=== PATIENT | male | born 1955 | race Caucasian/White ===

== ENCOUNTER → 2020-06-24 | Outpatient (CLI) | payer MEDICARE, OTHER ==
[~2020-06-24] MED LIST: BACITRAYCIN PLU28 GM TP; CYCLOBENZAPRINE10 MG PO; FLONASE 0.05% N16 GM; IBUPROFEN600 MG PO; OMNICEF 300 MG300 MG PO; TESSALON PERLE100 MG PO
== END ==
LOC: RAD 10:05
DX: R93.7 Abnormal findings on diagnostic imaging of other parts of musculoskeletal system (principal)
CPT/HCPCS: 72110

== ENCOUNTER → 2020-07-19 | Outpatient (CLI) | payer MEDICARE, OTHER | LOC: EMI 10:31 | DX: M54.5 Low back pain (principal); M51.35 Other intervertebral disc degeneration, thoracolumbar region | CPT/HCPCS: 72148 ==

== ENCOUNTER 2020-12-11 22:20 | Emergency (ER) | payer OTHER, MEDICARE ==
[~2020-12-11 22:20] MED LIST changes: -BACITRAYCIN PLU28 GM TP; -CYCLOBENZAPRINE10 MG PO; -IBUPROFEN600 MG PO
[2020-12-12] MEDS ORDERED: CYCLOBENZAPRINE10 MG PO (00:04)
[2020-12-12] MEDS ORDERED: IBUPROFEN600 MG PO (00:04)
[2020-12-12] MEDS ORDERED: BACITRAYCIN PLU28 GM TP (00:06)
== END 2020-12-12 00:26 | disposition home or self-care (01) ==
LOC: ER1 22:20
DX: S20.212A Contusion of left front wall of thorax, initial encounter (principal); S80.212A Abrasion, left knee, initial encounter; S50.812A Abrasion of left forearm, initial encounter; V19.9XXA Pedal cyclist (driver) (passenger) injured in unspecified traffic accident, initial encounter; Y92.410 Unspecified street and highway as the place of occurrence of the external cause; F17.210 Nicotine dependence, cigarettes, uncomplicated; Z90.49 Acquired absence of other specified parts of digestive tract
CPT/HCPCS: 71111; 73562; 90471; 90714; 96372; 99283; J1885

== ENCOUNTER → 2021-01-27 | Outpatient (CLI) | payer MEDICARE, OTHER ==
[~2021-01-27] MED LIST changes: +BACITRAYCIN PLU28 GM TP; +CYCLOBENZAPRINE10 MG PO; +IBUPROFEN600 MG PO
[2021-01-27 11:23] LABS: HEMOGLOBIN 14.7 gm/dl (14.0-17.5); RED BLOOD COUNT 4.49 M/UL (4.20-5.50); WHITE BLOOD COUNT 7.6 K/UL (4.5-11.0)
== END ==
LOC: LAB 10:40
PROVIDERS: Nurse Practitioner Family
DX: I10 Essential (primary) hypertension (principal); E78.2 Mixed hyperlipidemia; R73.9 Hyperglycemia, unspecified; R80.9 Proteinuria, unspecified; R53.83 Other fatigue; Z23 Encounter for immunization; Z20.822 Contact with and (suspected) exposure to COVID-19
CPT/HCPCS: 36415; 80053; 82607; 83036; 84443; 85027; G0103

== ENCOUNTER → 2021-06-16 | Outpatient (CLI) | payer MEDICARE, OTHER | LOC: HEART A 09:00 | DX: I48.0 Paroxysmal atrial fibrillation (principal); I49.3 Ventricular premature depolarization; R00.2 Palpitations ==